=== PATIENT | male | born 1945 | race African-American/Black ===

== ENCOUNTER 2022-01-16 16:25 | Emergency (ER) | payer OTHER ==
[~2022-01-16] VITALS: Ht 177.8 cm; Wt 88.6 kg
[2022-01-16 16:45] VITALS: BP 151/93
[2022-01-16 17:00] VITALS: BP 141/91
[2022-01-16 17:16] VITALS: BP 143/92
[2022-01-16 17:31] VITALS: BP 156/102
[2022-01-16 17:46] VITALS: BP 162/112
[2022-01-16] MEDS ORDERED: ZPAK PO (17:50)
[2022-01-16] MEDS ORDERED: ZYRTEC10 MG PO (17:50)
[2022-01-16 17:57] VITALS: BP 162/112
== END 2022-01-16 18:02 | disposition home or self-care (01) | DRG 153 ==
LOC: ED 16:25
DX: J32.9 Chronic sinusitis, unspecified (principal)